=== PATIENT | female | born 1955 | race Caucasian/White ===

== ENCOUNTER 2024-12-15 06:45 | Day surgery (SDC) | payer BC, OTHER ==
[~2024-12-15 06:45] MED LIST: Sodium Chloride 0.9% 10 ML Syringe FLUSH PRN; Sodium Chloride 0.9% 2.5 ML Syringe FLUSH PRN; Sodium Chloride 0.9% 20 ML SDV IV PRN; ceFAZolin 2 GM in Sodium Chloride 0.9% 50 ML IV ONE
[2024-12-15] MEDS: Lactated Ringers 1,000 ML IV SCH (07:08)
[2024-12-15] MEDS ORDERED: Lidocaine 1% 20 ML MDV ONE (07:10)
[2024-12-15] MEDS ORDERED: Bupivacaine 0.5% 30 ML SDV ONE (07:10)
[2024-12-15] MEDS ORDERED: propofoL 500 MG/50 ML 50 ML ONE (07:25)
[2024-12-15] MEDS ORDERED: Midazolam 1 MG/ML 2 ML SDV ONE (07:29)
[2024-12-15] MEDS ORDERED: Ketamine HCL/NACL, ISO-OSM 50 MG/5 ML Syringe ONE (07:29)
[2024-12-15] MEDS ORDERED: fentaNYL 100 MCG/2 ML SDV ONE (07:29)
[2024-12-15] MEDS ORDERED: dexmedeTOMIDine HCl 200 MCG/2 ML SDV ONE (07:31)
[2024-12-15] MEDS ORDERED: Sodium Chloride 0.9% 20 ML ONE ×3 (07:31→08:15)
[2024-12-15] MEDS ORDERED: Dexamethasone 4 MG/ML 5 ML MDV ONE (07:33)
[2024-12-15] MEDS ORDERED: Ketorolac 30 MG/ML SDV ONE (07:33)
[2024-12-15] MEDS ORDERED: Famotidine 20 MG/2 ML SDV ONE (07:36)
[2024-12-15] MEDS ORDERED: Naloxone 0.4 MG/ML SDV IVPUSH PRN (07:37)
[2024-12-15] MEDS ORDERED: fentaNYL 50 MCG/ML SDV IVPUSH PRN (07:37)
[2024-12-15] MEDS ORDERED: Ondansetron 4 MG/2 ML SDV IVPUSH PRN (07:37)
[2024-12-15] MEDS ORDERED: Phenylephrine HCl In 0.9% NaCl 1 MG/10 ML Syringe IVPUSH PRN (07:37)
[2024-12-15] MEDS ORDERED: Albuterol 0.083% 2.5 MG/3 ML Neb Soln NEB PRN (07:37)
[2024-12-15] MEDS ORDERED: HYDROmorphone 1 MG/ML Syringe IVPUSH PRN (07:37)
[2024-12-15] MEDS ORDERED: Morphine 2 MG/ML SYRINGE IVPUSH PRN (07:37)
[2024-12-15] MEDS ORDERED: Metoclopramide 10 MG/2 ML SDV IVPUSH PRN (07:37)
[2024-12-15] MEDS ORDERED: Lidocaine 2% 11 ML Jelly Filled Syringe ONE (08:04)
[2024-12-15] MEDS ORDERED: ceFAZolin 2 GM Vial ONE (08:04)
[2024-12-15] MEDS ORDERED: ePHEDrine 50 MG/ML SDV ONE (08:15)
[2024-12-15 09:56] VITALS: BP 140/60; PULSE 82
== END 2024-12-15 10:05 | disposition home or self-care (01) ==
LOC: MW.SDS 06:45
PROVIDERS: ATTEND Surgery
DX: D17.23 Benign lipomatous neoplasm of skin and subcutaneous tissue of right leg (principal); E78.00 Pure hypercholesterolemia, unspecified; E66.3 Overweight; Z88.1 Allergy status to other antibiotic agents; Z88.8 Allergy status to other drugs, medicaments and biological substances; Z79.899 Other long term (current) drug therapy; Z68.33 Body mass index [BMI] 33.0-33.9, adult
CPT/HCPCS: 11406; A9270; J0131; J0665; J0690; J1100; J1885; J2250; J2704; J3010; J7120; 00400; J3490